=== PATIENT | female | born 1940 | race African-American/Black ===

== ENCOUNTER 2017-07-25 13:09 | Emergency (ER) | payer BC ==
[~2017-07-25] VITALS: Ht 165.1 cm; Wt 46.2 kg
[~2017-07-25 13:09] MED LIST: AMLODIPINE BESY10 MG PO; ANTIVERT25 MG PO; APRESOLINE50 MG PO; ASPIR-LOW81 MG PO; BENADRYL ALLERG25 MG PO; CARVEDILOL6.25 MG PO; EFFEXOR75 MG PO; FLAGYL250 MG PO; KEFLEX250 MG PO; LEVOTHYROXINE25 MCG PO; PLENDIL5 M1 PO; PRAVASTATIN SOD40 MG PO; RENVELA800 MG PO; ROCALTROL0.5 MCG PO; VITAMIN D1000 UNIT PO
[2017-07-25 14:17] LABS: BASOPHIL COUNT 0.1 K/uL (0-0.1); EOSINOPHIL (%) 3.7 % (0-5); EOSINOPHIL COUNT 0.2 K/uL (0-0.3); HEMATOCRIT 38.6 % (36.0-46.0); IMMATURE GRANULOCYTE (%) 0.4 % (0.0-0.7); INSTRUMENT ABS NEUTROPHIL CT 2.9 K/uL; LYMPHOCYTE COUNT 1.3 K/uL (1.0-2.8); MCH 29.5 PG (29.0-34.0); MCHC 32.4 G/DL (30.0-36.0); MONOCYTE COUNT 0.3 K/uL (0-0.8); NEUTROPHIL (%) 60.2 % (45-76); NEUTROPHIL COUNT 2.9 K/uL (1.8-6.4); PLATELET COUNT 341 K/uL (156-360); RBC DIS.WIDTH-CV 13.6 % (11.8-14.6); RBC DIS.WIDTH-SD 45.2 % (39-53); RED BLOOD COUNT 4.24 M/uL (3.80-5.20); WHITE BLOOD COUNT 4.8 K/uL (4.1-10.2)
[2017-07-25 14:20] LABS: POTASSIUM 3.1 mEq/L (3.7-5.4)
[2017-07-25 14:22] LABS: INTER. NORMALIZED RATIO 1.1; PROTHROMBIN TIME 12.3 SEC (10.2-12.9)
[2017-07-25 14:25] LABS: PTT 30.4 SEC (25-37)
[2017-07-25 14:28] LABS: CHLORIDE 110 mEq/L (99-109); POTASSIUM 3.1 mEq/L (3.7-5.4); SODIUM 144 mEq/L (136-147)
[2017-07-25 14:30] LABS: GLUCOSE 99 mg/dL (70-99)
[2017-07-25 14:31] LABS: ANION GAP 17 MEQ/L (2-14)
[2017-07-25 14:32] LABS: TOTAL BILIRUBIN 0.5 mg/dL (0.0-1.0)
[2017-07-25 14:33] LABS: ALKALINE PHOSPHATASE 86 IU/L (3-129)
[2017-07-25 14:34] LABS: GFR ESTIMATE (CALCULATED) 6 mL/min/
[2017-07-25 14:35] LABS: UREA NITROGEN (BUN) 61 mg/dL (9-23)
[2017-07-25 15:39] LABS: ADD MIUA? YES; BILIRUBIN NEGATIVE; BLOOD SMALL; COLOR YELLOW ((YELLOW)); GLUCOSE (STRIP) 50; KETONES 5; LEUKOCYTES SMALL; NITRITE NEGATIVE; PROTEIN (STRIP) >=500; SPECIFIC GRAVITY 1.011 (1.000-1.030); UROBILINOGEN 0.2 MG/DL (0.2-1.0)
[2017-07-25 15:57] LABS: EPITHELIAL CELLS 1+ /HPF; RED BLOOD CELLS 0-5 /HPF (0-5); WHITE BLOOD CELLS 0-5 /HPF (0-5)
[2017-07-25 15:58] LABS: BACTERIA 1+ /HPF; MUCUS NONE SEEN /LPF; UCUL ADDED? NO
[2017-07-25 16:10] VITALS: BP 180/120
== END 2017-07-25 16:10 | disposition home or self-care (01) ==
LOC: EME 13:09
PROVIDERS: Emergency Medicine
DX: I12.0 Hypertensive chronic kidney disease with stage 5 chronic kidney disease or end stage renal disease (principal); N18.6 End stage renal disease; E87.6 Hypokalemia; M79.1 Myalgia; R11.2 Nausea with vomiting, unspecified; R19.7 Diarrhea, unspecified; Z90.5 Acquired absence of kidney; Z91.15 Patient's noncompliance with renal dialysis; Z99.2 Dependence on renal dialysis; Z86.73 Personal history of transient ischemic attack (TIA), and cerebral infarction without residual deficits; Z79.82 Long term (current) use of aspirin; F17.200 Nicotine dependence, unspecified, uncomplicated
CPT/HCPCS: 80047; 80053; 81003; 85025; 85610; 85730; 93005

== ENCOUNTER 2017-07-28 16:25 | Inpatient (IN) | payer BC ==
[~2017-07-28] VITALS: Ht 165.1 cm; Wt 44.8 kg
[2017-07-28 17:12] LABS: BASOPHIL (%) 2.3 % (0-1); BASOPHIL COUNT 0.1 K/uL (0-0.1); EOSINOPHIL COUNT 0.3 K/uL (0-0.3); HEMATOCRIT 35.2 % (36.0-46.0); HEMOGLOBIN 11.7 G/DL (11.9-15.5); IMMATURE GRANULOCYTE (%) 0.4 % (0.0-0.7); LYMPHOCYTE (%) 23.1 % (15-42); LYMPHOCYTE COUNT 1.1 K/uL (1.0-2.8); MCH 29.8 PG (29.0-34.0); MCHC 33.2 G/DL (30.0-36.0); MCV 89.6 FL (83-99); MONOCYTE (%) 7.4 % (3-12); MONOCYTE COUNT 0.4 K/uL (0-0.8); NEUTROPHIL (%) 60.8 % (45-76); PLATELET COUNT 325 K/uL (156-360); RBC DIS.WIDTH-CV 13.5 % (11.8-14.6); RBC DIS.WIDTH-SD 44.4 % (39-53); RED BLOOD COUNT 3.93 M/uL (3.80-5.20); WHITE BLOOD COUNT 4.9 K/uL (4.1-10.2)
[2017-07-28 17:29] LABS: INTER. NORMALIZED RATIO 1.1
[2017-07-28 17:30] LABS: CHLORIDE 108 mEq/L (99-109); POTASSIUM 3.2 mEq/L (3.7-5.4); SODIUM 140 mEq/L (136-147)
[2017-07-28 17:32] LABS: GLUCOSE 95 mg/dL (70-99); PTT 27.9 SEC (25-37)
[2017-07-28 17:36] LABS: CREATININE 9.6 mg/dL (0.6-1.3); GFR ESTIMATE (CALCULATED) 5 mL/min/; UREA NITROGEN (BUN) 74 mg/dL (9-23)
[2017-07-28 17:42] LABS: TROP-I INTERPRETATION NEGATIVE; TROPONIN-I 0.01 ng/mL (0.0-0.30)
[2017-07-28] MEDS ORDERED: AMLODIPINE BESY10 MG PO (20:55)
[2017-07-28] MEDS ORDERED: NABI650T PO (20:55)
[2017-07-29] VITALS (7 sets, daily range): BP systolic 95–131; BP diastolic 60–78
[2017-07-29 18:06] LABS: CHLORIDE 105 MEQ/L (99-109); POTASSIUM 3.6 MEQ/L (3.7-5.4); SODIUM 136 MEQ/L (136-147)
[2017-07-29 18:12] LABS: CREATININE 8.8 MG/DL (0.6-1.3); GFR ESTIMATE (CALCULATED) 6 mL/min/; GLUCOSE 116 mg/dL (70-99); UREA NITROGEN (BUN) 72 mg/dL (9-23)
[2017-07-30 04:18] VITALS: BP 128/78
[2017-07-30 05:50] LABS: BASOPHIL COUNT 0.1 K/uL (0-0.1); EOSINOPHIL (%) 2.8 % (0-5); EOSINOPHIL COUNT 0.2 K/uL (0-0.3); HEMATOCRIT 30.7 % (36.0-46.0); HEMOGLOBIN 10.1 G/DL (11.9-15.5); IMMATURE GRANULOCYTE (%) 0.3 % (0.0-0.7); LYMPHOCYTE COUNT 0.8 K/uL (1.0-2.8); MCH 29.8 PG (29.0-34.0); MCHC 32.9 G/DL (30.0-36.0); MCV 90.6 FL (83-99); MONOCYTE (%) 7.9 % (3-12); MONOCYTE COUNT 0.6 K/uL (0-0.8); PLATELET COUNT 285 K/uL (156-360); RBC DIS.WIDTH-CV 13.7 % (11.8-14.6); RBC DIS.WIDTH-SD 45.9 % (39-53); RED BLOOD COUNT 3.39 M/uL (3.80-5.20); WHITE BLOOD COUNT 7.6 K/uL (4.1-10.2)
[2017-07-30 06:09] LABS: ALBUMIN 3.6 G/DL (3.2-4.8); ALKALINE PHOSPHATASE 64 IU/L (3-129); ALT (GPT) 3 IU/L (3-49); AST (GOT) 11 IU/L (2-34); CHLORIDE 103 MEQ/L (99-109); CREATININE 10.1 MG/DL (0.6-1.3); CREATININE 10.2 MG/DL (0.6-1.3); GFR ESTIMATE (CALCULATED) 5 mL/min/; IRON 80 MCG/DL (35-150); PHOSPHORUS 7.2 mg/dL (2.5-4.9); POTASSIUM 3.4 MEQ/L (3.7-5.4); SODIUM 138 MEQ/L (136-147); TOTAL BILIRUBIN 0.3 MG/DL (0.0-1.0); TOTAL PROTEIN 6.2 G/DL (6.4-8.3); TRANSFERRIN (TIBC) 141.3 mg/dL (215-380); TRANSFERRIN SATUR. 57 % (20-55); UREA NITROGEN (BUN) 78 mg/dL (9-23)
[2017-07-30 06:12] LABS: GLUCOSE 82 mg/dL (70-99)
[2017-07-30 07:45] VITALS: BP 120/70
[2017-07-30 07:52] LABS: INTACT PARATHYROID HORMONE 478 pg/mL (10-69)
[2017-07-30 11:00] VITALS: BP 105/62
[2017-07-30 12:25] LABS: APPEARANCE SL.HAZY ((CLEAR)); BILIRUBIN NEGATIVE; BLOOD SMALL; COLOR YELLOW ((YELLOW)); GLUCOSE (STRIP) 50; KETONES NEGATIVE; LEUKOCYTES MODERATE; NITRITE NEGATIVE; PROTEIN (STRIP) 100; SPECIFIC GRAVITY 1.013 (1.000-1.030); UROBILINOGEN 0.2 MG/DL (0.2-1.0)
[2017-07-30 12:43] LABS: BACTERIA RARE /HPF; EPITHELIAL CELLS 1+ /HPF; MUCUS TRACE /LPF; RED BLOOD CELLS 0-5 /HPF (0-5); UCUL ADDED? YES
[2017-07-30 16:57] VITALS: BP 158/95
[2017-07-30 19:31] VITALS: BP 137/90
[2017-07-30 23:25] VITALS: BP 135/85
[2017-07-31 05:41] LABS: BASOPHIL (%) 1.5 % (0-1); BASOPHIL COUNT 0.1 K/uL (0-0.1); EOSINOPHIL (%) 5.1 % (0-5); EOSINOPHIL COUNT 0.3 K/uL (0-0.3); HEMATOCRIT 29.8 % (36.0-46.0); HEMOGLOBIN 9.8 G/DL (11.9-15.5); IMMATURE GRANULOCYTE (%) 0.4 % (0.0-0.7); LYMPHOCYTE (%) 14.7 % (15-42); LYMPHOCYTE COUNT 0.8 K/uL (1.0-2.8); MCH 28.9 PG (29.0-34.0); MCHC 32.9 G/DL (30.0-36.0); MCV 87.9 FL (83-99); MONOCYTE (%) 11.6 % (3-12); MONOCYTE COUNT 0.6 K/uL (0-0.8); NEUTROPHIL (%) 66.7 % (45-76); NEUTROPHIL COUNT 3.7 K/uL (1.8-6.4); PLATELET COUNT 261 K/uL (156-360); RBC DIS.WIDTH-CV 13.2 % (11.8-14.6); RBC DIS.WIDTH-SD 42.6 % (39-53); RED BLOOD COUNT 3.39 M/uL (3.80-5.20); WHITE BLOOD COUNT 5.5 K/uL (4.1-10.2)
[2017-07-31 06:34] LABS: ALBUMIN 3.4 G/DL (3.2-4.8); CHLORIDE 102 MEQ/L (99-109); GLUCOSE 87 mg/dL (70-99); POTASSIUM 3.8 MEQ/L (3.7-5.4); SODIUM 139 MEQ/L (136-147)
[2017-07-31 06:39] LABS: CREATININE 4.9 MG/DL (0.6-1.3); GFR ESTIMATE (CALCULATED) 11 mL/min/; UREA NITROGEN (BUN) 27 mg/dL (9-23)
[2017-07-31 06:40] LABS: PHOSPHORUS 2.9 mg/dL (2.5-4.9)
[2017-07-31 11:23] LABS: ANTI-HEPATITIS B CORE (TOTAL) Nonreactive
[2017-07-31 11:26] LABS: HEPATITIS B SURFACE ANTIBODY Nonreactive; HEPATITIS B SURFACE ANTIGEN Nonreactive; HEPATITIS C ANTIBODY Nonreactive
[2017-07-31 11:54] VITALS: BP 142/100
[2017-07-31 23:55] VITALS: BP 135/65
[2017-08-01 06:46] LABS: ALBUMIN 4.1 G/DL (3.2-4.8); CHLORIDE 98 MEQ/L (99-109); CREATININE 4.2 MG/DL (0.6-1.3); GFR ESTIMATE (CALCULATED) 13 mL/min/; GLUCOSE 96 mg/dL (70-99); PHOSPHORUS 2.7 mg/dL (2.5-4.9); POTASSIUM 4.4 MEQ/L (3.7-5.4); SODIUM 139 MEQ/L (136-147); UREA NITROGEN (BUN) 22 mg/dL (9-23)
[2017-08-01 08:02] VITALS: BP 170/70
[2017-08-01 16:03] VITALS: BP 148/95
[2017-08-01 23:34] VITALS: BP 134/90
[2017-08-02 06:11] VITALS: BP 156/94
[2017-08-02 07:45] LABS: ALBUMIN 3.5 G/DL (3.2-4.8); CHLORIDE 98 MEQ/L (99-109); GFR ESTIMATE (CALCULATED) 10 mL/min/; GLUCOSE 89 mg/dL (70-99); PHOSPHORUS 3.4 mg/dL (2.5-4.9); POTASSIUM 4.4 MEQ/L (3.7-5.4); SODIUM 139 MEQ/L (136-147)
[2017-08-02 07:46] LABS: CREATININE 5.5 MG/DL (0.6-1.3); UREA NITROGEN (BUN) 38 mg/dL (9-23)
[2017-08-02 07:54] LABS: BASOPHIL (%) 1.4 % (0-1); BASOPHIL COUNT 0.1 K/uL (0-0.1); EOSINOPHIL (%) 7.1 % (0-5); EOSINOPHIL COUNT 0.5 K/uL (0-0.3); HEMATOCRIT 32.7 % (36.0-46.0); HEMOGLOBIN 10.5 G/DL (11.9-15.5); IMMATURE GRANULOCYTE (%) 0.5 % (0.0-0.7); LYMPHOCYTE (%) 23.2 % (15-42); LYMPHOCYTE COUNT 1.5 K/uL (1.0-2.8); MCH 29.3 PG (29.0-34.0); MCHC 32.1 G/DL (30.0-36.0); MCV 91.3 FL (83-99); MONOCYTE (%) 8.6 % (3-12); MONOCYTE COUNT 0.6 K/uL (0-0.8); NEUTROPHIL (%) 59.2 % (45-76); NEUTROPHIL COUNT 3.9 K/uL (1.8-6.4); PLATELET COUNT 299 K/uL (156-360); RBC DIS.WIDTH-CV 13.2 % (11.8-14.6); RBC DIS.WIDTH-SD 44.6 % (39-53); RED BLOOD COUNT 3.58 M/uL (3.80-5.20); WHITE BLOOD COUNT 6.5 K/uL (4.1-10.2)
[2017-08-02 11:39] VITALS: BP 138/89
[2017-08-02 16:59] VITALS: BP 137/81
[2017-08-02 19:54] VITALS: BP 143/82
[2017-08-03] VITALS (7 sets, daily range): BP systolic 131–160; BP diastolic 81–97
[2017-08-03 05:57] LABS: ALBUMIN 3.3 G/DL (3.2-4.8); CHLORIDE 100 MEQ/L (99-109); CREATININE 5.5 MG/DL (0.6-1.3); GFR ESTIMATE (CALCULATED) 10 mL/min/; GLUCOSE 85 mg/dL (70-99); PHOSPHORUS 2.8 mg/dL (2.5-4.9); POTASSIUM 4.2 MEQ/L (3.7-5.4); SODIUM 139 MEQ/L (136-147); UREA NITROGEN (BUN) 33 mg/dL (9-23)
[2017-08-04 06:57] LABS: BASOPHIL (%) 0.6 % (0-1); BASOPHIL COUNT 0.1 K/uL (0-0.1); EOSINOPHIL (%) 5.4 % (0-5); EOSINOPHIL COUNT 0.4 K/uL (0-0.3); IMMATURE GRANULOCYTE (%) 0.4 % (0.0-0.7); LYMPHOCYTE (%) 16.2 % (15-42); LYMPHOCYTE COUNT 1.3 K/uL (1.0-2.8); MCH 30.2 PG (29.0-34.0); MCHC 32.3 G/DL (30.0-36.0); MCV 93.7 FL (83-99); MONOCYTE (%) 11.1 % (3-12); MONOCYTE COUNT 0.9 K/uL (0-0.8); NEUTROPHIL (%) 66.3 % (45-76); NEUTROPHIL COUNT 5.5 K/uL (1.8-6.4); PLATELET COUNT 287 K/uL (156-360); RBC DIS.WIDTH-CV 13.1 % (11.8-14.6); RED BLOOD COUNT 3.31 M/uL (3.80-5.20); WHITE BLOOD COUNT 8.2 K/uL (4.1-10.2)
[2017-08-04 08:00] VITALS: BP 168/100
[2017-08-04 08:41] LABS: ALBUMIN 3.4 G/DL (3.2-4.8); CHLORIDE 97 MEQ/L (99-109); GFR ESTIMATE (CALCULATED) 7 mL/min/; GLUCOSE 87 mg/dL (70-99); PHOSPHORUS 2.1 mg/dL (2.5-4.9); POTASSIUM 4.5 MEQ/L (3.7-5.4); SODIUM 136 MEQ/L (136-147); THYROTROPIN (TSH) 2.6 MIU/L (0.4-5.5)
[2017-08-04 08:43] LABS: CREATININE 6.9 MG/DL (0.6-1.3); UREA NITROGEN (BUN) 52 mg/dL (9-23)
[2017-08-04 17:22] VITALS: BP 169/97
[2017-08-04 23:08] VITALS: BP 134/76
[2017-08-05 05:58] LABS: ALBUMIN 3.1 G/DL (3.2-4.8); CHLORIDE 103 MEQ/L (99-109); CREATININE 4.4 MG/DL (0.6-1.3); GFR ESTIMATE (CALCULATED) 13 mL/min/; GLUCOSE 86 mg/dL (70-99); PHOSPHORUS 2.4 mg/dL (2.5-4.9); POTASSIUM 4.2 MEQ/L (3.7-5.4); SODIUM 142 MEQ/L (136-147); UREA NITROGEN (BUN) 25 mg/dL (9-23)
[2017-08-05 08:10] VITALS: BP 166/96
[2017-08-05 16:11] VITALS: BP 107/65
[2017-08-06 00:21] VITALS: BP 127/74
[2017-08-06 08:12] VITALS: BP 130/75
[2017-08-06 08:25] LABS: BASOPHIL (%) 0.7 % (0-1); BASOPHIL COUNT 0.1 K/uL (0-0.1); EOSINOPHIL (%) 6.1 % (0-5); EOSINOPHIL COUNT 0.4 K/uL (0-0.3); HEMOGLOBIN 8.8 G/DL (11.9-15.5); IMMATURE GRANULOCYTE (%) 0.3 % (0.0-0.7); LYMPHOCYTE (%) 16.3 % (15-42); LYMPHOCYTE COUNT 1.2 K/uL (1.0-2.8); MCH 29.5 PG (29.0-34.0); MCHC 31.4 G/DL (30.0-36.0); MONOCYTE (%) 11.2 % (3-12); MONOCYTE COUNT 0.8 K/uL (0-0.8); NEUTROPHIL (%) 65.4 % (45-76); NEUTROPHIL COUNT 4.6 K/uL (1.8-6.4); PLATELET COUNT 296 K/uL (156-360); RBC DIS.WIDTH-CV 13.2 % (11.8-14.6); RBC DIS.WIDTH-SD 45.3 % (39-53); RED BLOOD COUNT 2.98 M/uL (3.80-5.20)
[2017-08-06 08:47] LABS: ALBUMIN 3.1 G/DL (3.2-4.8); CHLORIDE 101 MEQ/L (99-109); GFR ESTIMATE (CALCULATED) 8 mL/min/; GLUCOSE 97 mg/dL (70-99); PHOSPHORUS 3.2 mg/dL (2.5-4.9); POTASSIUM 3.8 MEQ/L (3.7-5.4); SODIUM 139 MEQ/L (136-147)
[2017-08-06 08:53] LABS: CREATININE 6.4 MG/DL (0.6-1.3); UREA NITROGEN (BUN) 40 mg/dL (9-23)
[2017-08-06] MEDS ORDERED: ULTRA-LIGHT RO1 EACH MC (14:26)
== END 2017-08-06 15:46 | disposition home or self-care (01) | DRG 564 ==
LOC: EME 16:25 → 4EAST 22:19 → EDOF 22:19 → 3EAST 22:19 → ENRESERV 22:23 → 4EAST 07-29 01:28 → ENRESERV 07-30 10:13 → 3EAST 07-30 13:37
PROVIDERS: Emergency Medicine; Hospitalist; Internal Medicine Nephrology
PROC: 0W9B30Z Drainage of Left Pleural Cavity with Drainage Device, Percutaneous Approach (ICD-10-PCS; principal; 2017-07-28)
PROC: 02HV33Z Insertion of Infusion Device into Superior Vena Cava, Percutaneous Approach (ICD-10-PCS; 2017-07-29)
PROC: 0W9B30Z Drainage of Left Pleural Cavity with Drainage Device, Percutaneous Approach (ICD-10-PCS; 2017-07-29)
PROC: 5A1D70Z Performance of Urinary Filtration, Intermittent, Less than 6 Hours Per Day (ICD-10-PCS; 2017-07-30)
DX: Q87.89 Other specified congenital malformation syndromes, not elsewhere classified (principal); J93.12 Secondary spontaneous pneumothorax; N17.9 Acute kidney failure, unspecified; E87.2 Acidosis; I12.0 Hypertensive chronic kidney disease with stage 5 chronic kidney disease or end stage renal disease; N18.6 End stage renal disease; R64 Cachexia; J44.9 Chronic obstructive pulmonary disease, unspecified; J98.11 Atelectasis; E87.6 Hypokalemia; F32.9 Major depressive disorder, single episode, unspecified; E03.9 Hypothyroidism, unspecified; F17.210 Nicotine dependence, cigarettes, uncomplicated; Z68.1 Body mass index [BMI] 19.9 or less, adult; Z79.82 Long term (current) use of aspirin; Z85.528 Personal history of other malignant neoplasm of kidney; Z85.828 Personal history of other malignant neoplasm of skin; Z86.73 Personal history of transient ischemic attack (TIA), and cerebral infarction without residual deficits; Z99.2 Dependence on renal dialysis; Z90.5 Acquired absence of kidney; Z91.15 Patient's noncompliance with renal dialysis; Z91.14 Patient's other noncompliance with medication regimen
CPT/HCPCS: 71010; 71020; 71250; 76770; 80047; 80048; 80053; 80069; 81003; 83540; 83605; 83970; 84443; 84466; 84484; 85025; 85610; 85730; 86704; 86706; 86803; 87086; 87340; 93005; 94640; 94640 76; 99202; 99281; 99285; C1729; C1750; C1894; J0690; J1644; J2250; J2270; J2405; J3010; S0020

== ENCOUNTER 2017-09-10 14:38 | Emergency (ER) | payer BC ==
[~2017-09-10] VITALS: Ht 165.1 cm; Wt 45.1 kg
[~2017-09-10 14:38] MED LIST changes: +NABI650T PO; +ULTRA-LIGHT RO1 EACH MC
[2017-09-10 15:23] LABS: HEMATOCRIT 26.6 % (36.0-46.0); HEMOGLOBIN 8.7 G/DL (11.9-15.5); MCH 30.3 PG (29.0-34.0); MCHC 32.7 G/DL (30.0-36.0); MCV 92.7 FL (83-99); PLATELET COUNT 255 K/uL (156-360); RBC DIS.WIDTH-CV 13.9 % (11.8-14.6); RBC DIS.WIDTH-SD 47.3 % (39-53); RED BLOOD COUNT 2.87 M/uL (3.80-5.20); WHITE BLOOD COUNT 5.5 K/uL (4.1-10.2)
[2017-09-10 15:33] LABS: CHLORIDE 114 mEq/L (99-109); POTASSIUM 3.9 mEq/L (3.7-5.4); SODIUM 144 mEq/L (136-147)
[2017-09-10 15:34] LABS: GLUCOSE 140 mg/dL (70-99)
[2017-09-10 15:38] LABS: CREATININE 11.9 mg/dL (0.6-1.3); GFR ESTIMATE (CALCULATED) 4 mL/min/
[2017-09-10 15:39] LABS: UREA NITROGEN (BUN) 79 mg/dL (9-23)
[2017-09-10 17:51] LABS: APPEARANCE SL.HAZY ((CLEAR)); BILIRUBIN NEGATIVE; BLOOD SMALL; COLOR YELLOW ((YELLOW)); GLUCOSE (STRIP) 150; KETONES NEGATIVE; LEUKOCYTES SMALL; NITRITE NEGATIVE; PROTEIN (STRIP) 100; SPECIFIC GRAVITY 1.012 (1.000-1.030); UROBILINOGEN 0.2 MG/DL (0.2-1.0)
[2017-09-10 18:12] LABS: RED BLOOD CELLS 0-5 /HPF (0-5)
[2017-09-10 18:13] LABS: AMORPHOUS URATES CRYSTALS 1+; BACTERIA 2+ /HPF; EPITHELIAL CELLS 1+ /HPF; MUCUS 1+ /LPF
[2017-09-10 18:43] VITALS: BP 156/87
== END 2017-09-10 18:45 | disposition home or self-care (01) ==
LOC: EME 14:38
PROVIDERS: Physician Assistant
DX: I12.9 Hypertensive chronic kidney disease with stage 1 through stage 4 chronic kidney disease, or unspecified chronic kidney disease (principal); N18.9 Chronic kidney disease, unspecified; R19.7 Diarrhea, unspecified; J44.9 Chronic obstructive pulmonary disease, unspecified; K21.9 Gastro-esophageal reflux disease without esophagitis; F41.9 Anxiety disorder, unspecified; F31.9 Bipolar disorder, unspecified; F32.9 Major depressive disorder, single episode, unspecified; F17.200 Nicotine dependence, unspecified, uncomplicated; Z85.528 Personal history of other malignant neoplasm of kidney; Z85.828 Personal history of other malignant neoplasm of skin; Z86.73 Personal history of transient ischemic attack (TIA), and cerebral infarction without residual deficits; Z91.041 Radiographic dye allergy status
CPT/HCPCS: 71046; 80048; 81003; 85027; 87493; 87506; 93005; 99281; 99285; J1200; J7040

== ENCOUNTER 2017-11-05 16:31 | Inpatient (IN) | payer BC ==
[~2017-11-05] VITALS: Ht 160 cm; Wt 46.8 kg
[~2017-11-05 16:31] MED LIST changes: +CARVEDILOL12.5 MG PO; -CARVEDILOL6.25 MG PO
[2017-11-05 16:47] LABS: BASOPHIL (%) 0.7 % (0-1); EOSINOPHIL (%) 3.2 % (0-5); EOSINOPHIL COUNT 0.1 K/uL (0-0.3); HEMOGLOBIN 11.4 G/DL (11.9-15.5); IMMATURE GRANULOCYTE (%) 0.5 % (0.0-0.7); LYMPHOCYTE (%) 22.9 % (15-42); LYMPHOCYTE COUNT 0.9 K/uL (1.0-2.8); MCH 31.4 PG (29.0-34.0); MCHC 32.6 G/DL (30.0-36.0); MCV 96.4 FL (83-99); MONOCYTE (%) 11.7 % (3-12); MONOCYTE COUNT 0.5 K/uL (0-0.8); NEUTROPHIL COUNT 2.5 K/uL (1.8-6.4); PLATELET COUNT 220 K/uL (156-360); RBC DIS.WIDTH-CV 14.6 % (11.8-14.6); RBC DIS.WIDTH-SD 52.2 % (39-53); RED BLOOD COUNT 3.63 M/uL (3.80-5.20); WHITE BLOOD COUNT 4.1 K/uL (4.1-10.2)
[2017-11-05 16:53] LABS: INTER. NORMALIZED RATIO 1.1
[2017-11-05 16:55] LABS: PTT 81.1 SEC (25-37)
[2017-11-05 16:58] LABS: AMYLASE 155 IU/L (1-118); CHLORIDE 95 mEq/L (99-109); SODIUM 140 mEq/L (136-147)
[2017-11-05 16:59] LABS: GLUCOSE 134 mg/dL (70-99)
[2017-11-05 17:02] LABS: SERUM ETHYL ALCOHOL < 10 mg/dL
[2017-11-05 17:03] LABS: CREATININE 2.8 mg/dL (0.6-1.3); GFR ESTIMATE (CALCULATED) 21 mL/min/
[2017-11-05 17:04] LABS: UREA NITROGEN (BUN) 10 mg/dL (9-23)
[2017-11-05 17:06] LABS: LIPASE 91 U/L (1.0-51.0)
[2017-11-05 17:12] LABS: TROP-I INTERPRETATION NEGATIVE; TROPONIN-I 0.01 ng/mL (0.0-0.30)
[2017-11-05] MEDS ORDERED: FERRIC CITRATE210 MG PO (17:36)
[2017-11-05] MEDS ORDERED: QUESTRAN POWDE378 GM PO (17:36)
[2017-11-05] MEDS ORDERED: SENSIPAR30 MG PO (17:37)
[2017-11-05 20:50] VITALS: BP 150/95
[2017-11-05 21:44] LABS: HEMOGLOBIN 12.5 G/DL (11.9-15.5); MCH 31.1 PG (29.0-34.0); MCHC 30.5 G/DL (30.0-36.0); NRBC (%) 0.1 /100 WBC (0-0); PLATELET COUNT 275 K/uL (156-360); RBC DIS.WIDTH-SD 56.7 % (39-53); RED BLOOD COUNT 4.02 M/uL (3.80-5.20); WHITE BLOOD COUNT 14.9 K/uL (4.1-10.2)
[2017-11-05 22:02] LABS: HDL CHOLESTEROL 103 MG/DL (Desirable>=50); LDL CHOLESTEROL 78 mg/dL (Desirable<100); NON-HDL CHOLESTEROL 100 mg/dL (Desirable<160); SERUM ETHYL ALCOHOL < 10 mg/dL; TOTAL CHOLESTEROL 203 mg/dL (Desirable<200); TRIGLYCERIDES 108 MG/DL (Normal: <150)
[2017-11-06] VITALS (26 sets, daily range): BP systolic 60–230; BP diastolic 41–142
[2017-11-06 08:47] LABS: BASOPHIL (%) 0.6 % (0-1); BASOPHIL COUNT 0.1 K/uL (0-0.1); EOSINOPHIL (%) 0.8 % (0-5); EOSINOPHIL COUNT 0.1 K/uL (0-0.3); HEMATOCRIT 34.5 % (36.0-46.0); HEMOGLOBIN 10.6 G/DL (11.9-15.5); IMMATURE GRANULOCYTE (%) 0.5 % (0.0-0.7); LYMPHOCYTE (%) 7.2 % (15-42); LYMPHOCYTE COUNT 0.9 K/uL (1.0-2.8); MCH 30.4 PG (29.0-34.0); MCHC 30.7 G/DL (30.0-36.0); MCV 98.9 FL (83-99); MONOCYTE (%) 7.4 % (3-12); MONOCYTE COUNT 0.9 K/uL (0-0.8); NEUTROPHIL (%) 83.5 % (45-76); NEUTROPHIL COUNT 10.5 K/uL (1.8-6.4); NRBC (%) 0.2 /100 WBC (0-0); PLATELET COUNT 242 K/uL (156-360); RBC DIS.WIDTH-SD 54.5 % (39-53); RED BLOOD COUNT 3.49 M/uL (3.80-5.20); WHITE BLOOD COUNT 12.5 K/uL (4.1-10.2)
[2017-11-06 09:04] LABS: CHLORIDE 96 MEQ/L (99-109); SODIUM 137 MEQ/L (136-147); UREA NITROGEN (BUN) 17 mg/dL (9-23)
[2017-11-06 09:48] LABS: CREATININE 4.2 MG/DL (0.6-1.3); GFR ESTIMATE (CALCULATED) 13 mL/min/; GLUCOSE 91 mg/dL (70-99); POTASSIUM 3.9 MEQ/L (3.7-5.4)
[2017-11-06 19:16] LABS: BASE EXCESS 1.1 mEq/L (-3 to +3); BICARBONATE 27.1 mEq/L (22-26); CARBOXY HGB 2.3 % (0-5); COMMENTS - BLOOD GASES C+; DEVICE VENT; FI02 50 %; MECHANICAL RATE 16 resp/min; METHEMOGLOBIN 1.9 % (0-1.5); MODE AC; PCO2 48 mm Hg (35-45); PEEP 5 CM/H20; PO2 105 mm Hg (80-100); SITE RR; TIDAL VOLUME 310 ML; TOTAL RESP RATE 18 resp/min; pH 7.36 (7.35-7.45)
[2017-11-07] VITALS (18 sets, daily range): BP systolic 109–163; BP diastolic 69–103
[2017-11-07 08:09] LABS: HEMOGLOBIN A1c (GLYCOHEMOGLOB) 4.3 % (Below 5.7)
[2017-11-07 11:20] LABS: BASOPHIL (%) 0.5 % (0-1); BASOPHIL COUNT 0.1 K/uL (0-0.1); EOSINOPHIL (%) 0.3 % (0-5); HEMATOCRIT 29.2 % (36.0-46.0); HEMOGLOBIN 8.9 G/DL (11.9-15.5); IMMATURE GRANULOCYTE (%) 0.5 % (0.0-0.7); LYMPHOCYTE (%) 5.3 % (15-42); LYMPHOCYTE COUNT 0.5 K/uL (1.0-2.8); MCH 30.5 PG (29.0-34.0); MCHC 30.5 G/DL (30.0-36.0); MONOCYTE (%) 11.7 % (3-12); MONOCYTE COUNT 1.2 K/uL (0-0.8); NEUTROPHIL (%) 81.7 % (45-76); NEUTROPHIL COUNT 8.2 K/uL (1.8-6.4); NRBC (%) 0.2 /100 WBC (0-0); PLATELET COUNT 221 K/uL (156-360); RBC DIS.WIDTH-CV 15.3 % (11.8-14.6); RBC DIS.WIDTH-SD 56.5 % (39-53); RED BLOOD COUNT 2.92 M/uL (3.80-5.20); WHITE BLOOD COUNT 10.1 K/uL (4.1-10.2)
[2017-11-07 12:06] LABS: ALBUMIN 3.2 G/DL (3.2-4.8); ALKALINE PHOSPHATASE 43 IU/L (3-129); ALT (GPT) 4 IU/L (3-49); AST (GOT) 14 IU/L (2-34); CHLORIDE 105 MEQ/L (99-109); GFR ESTIMATE (CALCULATED) 10 mL/min/; GLUCOSE 98 mg/dL (70-99); HIGH-SENS C-REACTIVE PROTEIN 4.71 MG/DL (0.02-0.20); POTASSIUM 3.7 MEQ/L (3.7-5.4); PROLACTIN 25.3 NG/ML; SODIUM 142 MEQ/L (136-147); TOTAL BILIRUBIN 0.4 MG/DL (0.0-1.0); TOTAL PROTEIN 5.4 G/DL (6.4-8.3)
[2017-11-07 12:08] LABS: CREATININE 5.5 MG/DL (0.6-1.3); UREA NITROGEN (BUN) 26 mg/dL (9-23)
[2017-11-08] VITALS (21 sets, daily range): BP systolic 119–187; BP diastolic 76–115
[2017-11-08 06:17] LABS: BASOPHIL (%) 0.6 % (0-1); BASOPHIL COUNT 0.1 K/uL (0-0.1); EOSINOPHIL COUNT 0.2 K/uL (0-0.3); HEMATOCRIT 29.8 % (36.0-46.0); IMMATURE GRANULOCYTE (%) 0.9 % (0.0-0.7); LYMPHOCYTE (%) 9.7 % (15-42); LYMPHOCYTE COUNT 0.8 K/uL (1.0-2.8); MCH 30.6 PG (29.0-34.0); MCHC 30.2 G/DL (30.0-36.0); MCV 101.4 FL (83-99); MONOCYTE (%) 9.5 % (3-12); MONOCYTE COUNT 0.8 K/uL (0-0.8); NEUTROPHIL (%) 77.3 % (45-76); NEUTROPHIL COUNT 6.5 K/uL (1.8-6.4); PLATELET COUNT 214 K/uL (156-360); RBC DIS.WIDTH-CV 15.3 % (11.8-14.6); RBC DIS.WIDTH-SD 57.3 % (39-53); RED BLOOD COUNT 2.94 M/uL (3.80-5.20); WHITE BLOOD COUNT 8.5 K/uL (4.1-10.2)
[2017-11-08 07:32] LABS: ALKALINE PHOSPHATASE 47 IU/L (3-129); ALT (GPT) 5 IU/L (3-49); AST (GOT) 13 IU/L (2-34); CHLORIDE 104 MEQ/L (99-109); CREATININE 6.2 MG/DL (0.6-1.3); GFR ESTIMATE (CALCULATED) 8 mL/min/; GLUCOSE 83 mg/dL (70-99); POTASSIUM 3.9 MEQ/L (3.7-5.4); SODIUM 141 MEQ/L (136-147); TOTAL PROTEIN 5.2 G/DL (6.4-8.3); UREA NITROGEN (BUN) 33 mg/dL (9-23)
[2017-11-08 07:36] LABS: TOTAL BILIRUBIN 0.3 MG/DL (0.0-1.0)
[2017-11-09] VITALS (22 sets, daily range): BP systolic 110–168; BP diastolic 70–107
[2017-11-09 07:05] LABS: BASOPHIL (%) 0.5 % (0-1); EOSINOPHIL (%) 3.6 % (0-5); EOSINOPHIL COUNT 0.2 K/uL (0-0.3); HEMATOCRIT 31.2 % (36.0-46.0); HEMOGLOBIN 9.4 G/DL (11.9-15.5); LYMPHOCYTE COUNT 0.5 K/uL (1.0-2.8); MCH 30.7 PG (29.0-34.0); MCHC 30.1 G/DL (30.0-36.0); MONOCYTE (%) 17.4 % (3-12); MONOCYTE COUNT 1.1 K/uL (0-0.8); NEUTROPHIL (%) 69.5 % (45-76); NEUTROPHIL COUNT 4.3 K/uL (1.8-6.4); NRBC (%) 0.5 /100 WBC (0-0); PLATELET COUNT 213 K/uL (156-360); RBC DIS.WIDTH-CV 15.2 % (11.8-14.6); RED BLOOD COUNT 3.06 M/uL (3.80-5.20); WHITE BLOOD COUNT 6.2 K/uL (4.1-10.2)
[2017-11-09 07:29] LABS: ALKALINE PHOSPHATASE 54 IU/L (3-129); ALT (GPT) 5 IU/L (3-49); AST (GOT) 13 IU/L (2-34); CHLORIDE 104 MEQ/L (99-109); GFR ESTIMATE (CALCULATED) 15 mL/min/; POTASSIUM 3.6 MEQ/L (3.7-5.4); SODIUM 139 MEQ/L (136-147); TOTAL BILIRUBIN 0.3 MG/DL (0.0-1.0); TOTAL PROTEIN 5.2 G/DL (6.4-8.3); UREA NITROGEN (BUN) 19 mg/dL (9-23)
[2017-11-09 07:32] LABS: CREATININE 3.8 MG/DL (0.6-1.3); GLUCOSE 109 mg/dL (70-99)
[2017-11-10] VITALS (10 sets, daily range): BP systolic 123–228; BP diastolic 77–118
[2017-11-10 05:51] LABS: BASOPHIL (%) 0.4 % (0-1); EOSINOPHIL (%) 3.7 % (0-5); EOSINOPHIL COUNT 0.2 K/uL (0-0.3); HEMATOCRIT 31.2 % (36.0-46.0); HEMOGLOBIN 9.4 G/DL (11.9-15.5); IMMATURE GRANULOCYTE (%) 1.1 % (0.0-0.7); LYMPHOCYTE (%) 7.7 % (15-42); LYMPHOCYTE COUNT 0.4 K/uL (1.0-2.8); MCH 30.1 PG (29.0-34.0); MCHC 30.1 G/DL (30.0-36.0); MONOCYTE (%) 13.9 % (3-12); MONOCYTE COUNT 0.7 K/uL (0-0.8); NEUTROPHIL (%) 73.2 % (45-76); NEUTROPHIL COUNT 3.9 K/uL (1.8-6.4); PLATELET COUNT 242 K/uL (156-360); RBC DIS.WIDTH-CV 15.1 % (11.8-14.6); RBC DIS.WIDTH-SD 54.9 % (39-53); RED BLOOD COUNT 3.12 M/uL (3.80-5.20); WHITE BLOOD COUNT 5.3 K/uL (4.1-10.2)
[2017-11-10 06:48] LABS: ALBUMIN 2.9 G/DL (3.2-4.8); ALKALINE PHOSPHATASE 68 IU/L (3-129); ALT (GPT) 4 IU/L (3-49); AST (GOT) 11 IU/L (2-34); CHLORIDE 107 MEQ/L (99-109); GLUCOSE 113 mg/dL (70-99); POTASSIUM 3.7 MEQ/L (3.7-5.4); SODIUM 140 MEQ/L (136-147); TOTAL PROTEIN 5.2 G/DL (6.4-8.3)
[2017-11-10 06:52] LABS: CREATININE 4.6 MG/DL (0.6-1.3); GFR ESTIMATE (CALCULATED) 12 mL/min/; TOTAL BILIRUBIN 0.2 MG/DL (0.0-1.0); UREA NITROGEN (BUN) 31 mg/dL (9-23)
== END 2017-11-10 14:37 | disposition hospice, home (50) | DRG 64 ==
LOC: EME → EDBD 16:31 → EME 16:31 → EDOF 19:45 → 4WEST 19:45 → ENRESERV 19:54 → 5SOUTH 20:42 → ENRESERV 11-06 00:56 → 4WEST 11-06 01:42 → ENPENDDIS 11-10 14:25 → 4WEST 11-10 14:37
PROVIDERS: Emergency Medicine Emergency Medical Services; Internal Medicine
DX: I63.319 Cerebral infarction due to thrombosis of unspecified middle cerebral artery (principal); Q87.89 Other specified congenital malformation syndromes, not elsewhere classified; I10 Essential (primary) hypertension; E87.6 Hypokalemia; K21.9 Gastro-esophageal reflux disease without esophagitis; J44.9 Chronic obstructive pulmonary disease, unspecified; E03.9 Hypothyroidism, unspecified; R29.703 NIHSS score 3; K59.00 Constipation, unspecified; Z66 Do not resuscitate; F41.9 Anxiety disorder, unspecified; F31.9 Bipolar disorder, unspecified; G40.901 Epilepsy, unspecified, not intractable, with status epilepticus; E78.5 Hyperlipidemia, unspecified; G43.909 Migraine, unspecified, not intractable, without status migrainosus; F17.200 Nicotine dependence, unspecified, uncomplicated; R47.81 Slurred speech; Z79.899 Other long term (current) drug therapy; G81.94 Hemiplegia, unspecified affecting left nondominant side; N28.1 Cyst of kidney, acquired; R47.01 Aphasia; Z51.5 Encounter for palliative care; N18.6 End stage renal disease; J96.90 Respiratory failure, unspecified, unspecified whether with hypoxia or hypercapnia; I63.40 Cerebral infarction due to embolism of unspecified cerebral artery; I12.0 Hypertensive chronic kidney disease with stage 5 chronic kidney disease or end stage renal disease; Z80.42 Family history of malignant neoplasm of prostate; G93.6 Cerebral edema; I48.0 Paroxysmal atrial fibrillation; K57.30 Diverticulosis of large intestine without perforation or abscess without bleeding; F17.210 Nicotine dependence, cigarettes, uncomplicated; Z91.19 Patient's noncompliance with other medical treatment and regimen; Z85.828 Personal history of other malignant neoplasm of skin; Z91.14 Patient's other noncompliance with medication regimen; Z99.2 Dependence on renal dialysis; Z85.528 Personal history of other malignant neoplasm of kidney; K57.90 Diverticulosis of intestine, part unspecified, without perforation or abscess without bleeding; Z68.1 Body mass index [BMI] 19.9 or less, adult; Z86.73 Personal history of transient ischemic attack (TIA), and cerebral infarction without residual deficits; Z79.82 Long term (current) use of aspirin; Z86.718 Personal history of other venous thrombosis and embolism; Z90.5 Acquired absence of kidney
CPT/HCPCS: 36600; 70450; 70551; 71045; 74176; 80048; 80048 91; 80053; 80061; 81003; 82150; 82803; 82948; 83036; 83690; 84145 90; 84146; 84484; 85025; 85027; 85610; 85730; 86141; 86850; 86900; 86901; 87070; 87205; 87641; 93005; 93880; 94002; 94003; 94640; 94640 76; 94760; 94799; 95819; 99202; 99281; 99285; A6214; C1751; G0480; J0360; J1644; J1953; J2060; J2250; J2270; J3010; J3480; J7030; J7050; S0028